=== PATIENT | female | born 1995 | race Caucasian/White ===

== ENCOUNTER 2017-01-03 15:55 | Emergency (ER) | payer OTHER ==
[~2017-01-03] VITALS: Ht 157.5 cm; Wt 56.0 kg
[~2017-01-03 15:55] MED LIST: DOXY100T PO; IBUP800T23 PO; ROBA750T3 PO
[2017-01-03 15:56] VITALS: BP 107/56; PULSE 120; RESP 14; TEMP 98.2; O2SAT 99
--- NOTE | 2017-01-03 16:39 | RADRPT ---
EXAM DATE/TIME: 01/03/2017 16:24 [place] COMPARISON: No previous studies available for comparison. INDICATIONS : Chest pain and bilateral ear pain for the past few days. MEDICAL HISTORY : None. SURGICAL HISTORY : None. ENCOUNTER: Initial ACUITY: 3 days PAIN SCORE: 10/10 LOCATION: Bilateral chest FINDINGS: A single view of the chest demonstrates the lungs to be symmetrically aerated without evidence of mas s, infiltrate or effusion. The cardiomediastinal contours are unremarkable. Osseous structures are intact. CONCLUSION: No acute disease. Long Castillo MD on January 03, 2017 at 16:36 Board Certified Radiologist. This report was verified electronically.
[2017-01-03 17:45] LABS: AUTOMATED NEUTROPHIL # 12.3 TH/MM3 (1.8-7.7); BASOPHIL % 0.2 % (0.0-2.0); EOSINOPHIL # 0.1 TH/MM3 (0-0.4); EOSINOPHIL % 0.6 % (0.0-4.0); HEMATOCRIT 36.5 % (35.0-46.0); HEMO FLAGS DIFF FINAL; LYMPH % 13.2 % (9.0-44.0); MEAN CELL VOLUME 89.2 FL (80.0-100.0); MEAN CORPUSCULAR HEMOGLOBIN 29.6 PG (27.0-34.0); MEAN CORPUSCULAR HGB CONC 33.2 % (32.0-36.0); MONO % 5.3 % (0.0-8.0); NEUT % 80.7 % (16.0-70.0); PLATELET COUNT 182 TH/MM3 (150-450); RED BLOOD COUNT 4.09 MIL/MM3 (4.00-5.30); RED CELL DISTRIBUTION WIDTH 13.6 % (11.6-17.2); WHITE BLOOD COUNT 15.2 TH/MM3 (4.0-11.0)
[2017-01-03 18:08] LABS: BICARBONATE 27.2 MEQ/L (21.0-32.0)
--- NOTE | 2017-01-03 21:40 | PD ---
HPI Chief Complaint: Chest Pain Time Seen by Provider: 21:34 Travel History International Travel<30 days: No Contact w/Intl Traveler<30days: No Traveled to known affect area: No History of Present Illness HPI 21-year-old female here for evaluation of chest pain, sore throat, left ear pain. Patient reports having left-sided chest pain for about 3 months that is been intermittent, sharp. She was having pain earlier today. On my assessment she is no longer having pain. She has had a cough productive of greenish sputum over the past couple of days. She is also complaining of sore throat and left ear pain for the last couple of days. Subjective fevers and chills. Left chest pain is moderate, no modifying factors. Throat pain is also moderate and left ear pain is also moderate, worse with swallowing. She is able to swallow and tolerate her secretions. No dyspnea. No history of DVT or PE. No family history or known personal history of cardiac disease. She smokes cigarettes daily. No illicit drugs or IVDU. Basic labs including CBC and BMP as well as EKG were performed in triage. EKG shows sinus tachycardia with a rate of 118, normal axis, normal intervals, no acute ischemic abnormality. PFSH Past Medical History ADHD: No Asthma: Yes (NO NEED FOR INHALER IN MONTHS) Blood Disorders: No Cancer: No Cardiovascular Problems: No Chemotherapy: No Diabetes: No Gastrointestinal Disorders: Yes (nausea, vomiting) Genitourinary: No Implanted Vascular Access Dvce: No Musculoskeletal: No Neurologic: No Psychiatric: Yes (MOOD DISORDER, NOS) Reproductive: Yes (cysts on both ovaries) Respiratory: Yes (ASTHMA) Immunizations Current: Yes Migraines: Yes Renal Failure: Yes (during her ) Seizures: No Sickle Cell Disease: No Thyroid Disease: No Ulcer: No : 4 Para: 1 Miscarriage: 2 : 1 Past Surgical History Section: Yes Other Surgery: No Social History Alcohol Use: No Tobacco Use: Yes (1/2ppd) Substance Use: Yes (marijauna) Allergies-Medications (Allergen,Severity, Reaction): Coded Allergies: Ultram (Verified Allergy, Severe, Rash, 01/03/17) Darvocet-N 100 (Verified Allergy, Intermediate, Hives, 01/03/17) Reported Meds & Prescriptions Reported Meds & Active Scripts Active Review of Systems Except as stated in HPI: all other systems reviewed are Neg Physical Exam Narrative GENERAL: Well-developed, well-nourished, comfortable, no acute distress. SKIN: Warm and dry. No rash. HEAD: Atraumatic. Normocephalic. EYES: Pupils equal and round. No scleral icterus. No injection or drainage. ENT: No nasal bleeding or discharge. Mucous membranes pink and moist. Bilateral tonsillar enlargement with whitish exudates bilaterally. No drooling or stridor. Left tympanic membrane is erythematous, not bulging. Right tympanic membrane is normal. Bilateral external auditory canals are normal. NECK: Trachea midline. No JVD. No nuchal rigidity. CARDIOVASCULAR: Tachycardic, regular. No murmur appreciated. RESPIRATORY: No accessory muscle use. Clear to auscultation. Breath sounds equal bilaterally. GASTROINTESTINAL: Abdomen soft, non-tender, nondistended. MUSCULOSKELETAL: No obvious deformities. No clubbing. No cyanosis. No edema. NEUROLOGICAL: Awake and alert. No obvious cranial nerve deficits. Motor grossly within normal limits. Normal speech. PSYCHIATRIC: Appropriate mood and affect; insight and judgment normal. Data Data Last Documented VS Vital Signs Date Time Temp Pulse Resp B/P Pulse Ox O2 Delivery O2 Flow Rate FiO2 01/03/17 21:36 18 01/03/17 15:56 98.2 120 107/56 99 Room Air Orders Electrocardiogram (01/03/17 16:06) Complete Blood Count With Diff (01/03/17 16:06) Basic Metabolic Panel (Bmp) (01/03/17 16:06) Chest, Single Ap (01/03/17 16:06) Ed Urine Pregnancytest Poc (01/03/17 16:07) Monoscreen (01/03/17 21:34) Influenzae A/B Antigen (01/03/17 21:34) Group A Rapid Strep Screen (01/03/17 21:34) D-Dimer (01/03/17 21:34) Beta Hcg (Quant/Titer) (01/03/17 21:34) Sodium Chlor 0.9% 1000 Ml Inj (Ns 1000 M (01/03/17 21:45) Ckmb (Isoenzyme) Profile (01/03/17 21:56) Troponin I (01/03/17 21:56) Ketorolac Inj (Toradol Inj) (01/03/17 22:15) Labs Laboratory Tests Test 01/03/17 01/03/17 16:40 21:55 White Blood Count 15.2 TH/MM3 Red Blood Count 4.09 MIL/MM3 Hemoglobin 12.1 GM/DL Hematocrit 36.5 % Mean Corpuscular Volume 89.2 FL Mean Corpuscular Hemoglobin 29.6 PG Mean Corpuscular Hemoglobin 33.2 % Concent Red Cell Distribution Width 13.6 % Platelet Count 182 TH/MM3 Mean Platelet Volume 10.7 FL Neutrophils (%) (Auto) 80.7 % Lymphocytes (%) (Auto) 13.2 % Monocytes (%) (Auto) 5.3 % Eosinophils (%) (Auto) 0.6 % Basophils (%) (Auto) 0.2 % Neutrophils # (Auto) 12.3 TH/MM3 Lymphocytes # (Auto) 2.0 TH/MM3 Monocytes # (Auto) 0.8 TH/MM3 Eosinophils # (Auto) 0.1 TH/MM3 Basophils # (Auto) 0.0 TH/MM3 CBC Comment DIFF FINAL Differential Comment Sodium Level 139 MEQ/L Potassium Level 4.0 MEQ/L Chloride Level 105 MEQ/L Carbon Dioxide Level 27.2 MEQ/L Anion Gap 7 MEQ/L Blood Urea Nitrogen 8 MG/DL Creatinine 0.60 MG/DL Estimat Glomerular Filtration 129 ML/MIN Rate Random Glucose 66 MG/DL Calcium Level 8.6 MG/DL D-Dimer Quantitative (PE/DVT) 0.47 MG/L FEU Total Creatine Kinase 71 U/L Troponin I LESS THAN 0.02 NG/ML Human Chorionic Gonadotropin, LESS THAN 1 Quant MIU/ML Monoscreen NEG MDM Medical Decision Making Medical Screen Exam Complete: Yes Emergency Medical Condition: Yes Interpretation(s) EKG: Sinus, rate 118, normal axis, normal intervals, no acute ischemic abnormality. Differential Diagnosis Influenza, viral illness, De[place], otitis media, ACS, pneumothorax, pneumonia, PE, pleurisy, costochondritis, pericarditis Narrative Course Initial vital signs show heart rate 120, blood pressure 107/56, pulse ox 99% on room air, oral temp of 98.2F. CBC is remarkable for WBC 15.2 with 80.7% neutrophils, otherwise unremarkable. BMP is unremarkable. Cardiac enzymes are negative. Beta hCG is negative. D-dimer is 0.47. Deuel is negative. Influenza is negative. Chest x-ray shows no acute disease. Heart rate improved after a liter of IV fluids, IV Toradol. Patient was started on amoxicillin here in the emergency department. She is stable for discharge home with a prescription for amoxicillin for strep pharyngitis. PMD follow-up this week. She was informed on when to return to the emergency department. She verbalizes understanding and agreement with plan. Diagnosis Primary Impression: Strep pharyngitis Referrals: Primary Care Physician 3 days Additional Instructions: Take antibiotic as prescribed. Stay hydrated with plenty of fluids. Keep fever under control with Tylenol and ibuprofen. Follow-up with a primary care physician this week. Return to the emergency department for worsening symptoms or any other concerns. Scripts Amoxicillin 500 Mg Tab1,000 Mg PO DAILY 10 Days Ref 0 Prov:Adama Dawson MD 01/03/17 Disposition: 01 DISCHARGE HOME Condition: Stable Adama Dawson MD Jan 03, 2017 21:40
[2017-01-03] MEDS ORDERED: SODIUM CHLOR 0.9% 1000 ML INJ 1,000 ML IV ONE (21:45)
[2017-01-03] MEDS ORDERED: KETOROLAC TROMETHAMINE 30 MG/ML (IVP) VIAL IV PUSH ONE (22:15)
[2017-01-03 22:41] LABS: BETA HCG QUANT LESS THAN 1 MIU/ML (0-5)
[2017-01-03 22:48] LABS: CREATINE KINASE 71 U/L (26-192)
[2017-01-03] MEDS ORDERED: AMOX500T PO (22:58)
[2017-01-03] MEDS ORDERED: AMOXICILLIN (TRIHYDRATE) 500 MG CAP PO ONE (23:00)
--- NOTE | 2017-01-04 22:40 | EKG ---
Date Performed: 01/03/2017 Time Performed: 16:34:18 PTAGE: 21 years EKG: SINUS TACHYCARDIA ABNORMAL RHYTHM ECG PREVIOUS TRACING : 07/06/2015 09.11 Compared to the previous tracing, rate has increased DOCTOR: Temo Teague Interpretating Date/Time 01/04/2017 22:39:39
[2017-01-05] MEDS ORDERED: METR-1 PO (08:52)
[2017-04-25] MEDS ORDERED: METR-1 PO (17:09)
== END 2017-01-03 23:38 | disposition home or self-care (01) ==
LOC: NEPB 15:55
DX: J02.0 Streptococcal pharyngitis (principal); R00.0 Tachycardia, unspecified; F17.210 Nicotine dependence, cigarettes, uncomplicated; F12.90 Cannabis use, unspecified, uncomplicated; B95.0 Streptococcus, group A, as the cause of diseases classified elsewhere
CPT/HCPCS: 71010; 80048; 82550; 84484; 84702; 84703; 85025; 85379; 86308; 87804; 87880; 93005; 96374; 99284; J1885; J7030